=== PATIENT | female | born 1980 | race Caucasian/White ===

== ENCOUNTER 2022-04-10 17:22 | Emergency (ER) | payer MEDICARE, MEDICAID ==
[~2022-04-10] VITALS: Ht 167.6 cm; Wt 54.5 kg
[2022-04-10 20:28] VITALS: BP 129/84
== END 2022-04-10 20:30 | disposition home or self-care (01) ==
LOC: ER 17:23
DX: B34.9 Viral infection, unspecified (principal); Z20.822 Contact with and (suspected) exposure to COVID-19; R50.9 Fever, unspecified
CPT/HCPCS: 87502; 87503; 87635; 99283; C9803